=== PATIENT | male | born 1960 | race Caucasian/White ===

== ENCOUNTER → 2025-06-23 | Day surgery (SDC) | payer BC ==
[2025-06-16 09:04] LABS: BASOPHILS % 0.6 % (0.0-1.0); EOSINOPHILS % 8.9 % (0.0-6.0); LYMPHOCYTES % 27.3 % (18.0-39.1); MONOCYTES % 7.3 % (4.4-11.3); NEUTROPHILS % 55.8 % (38.7-80.0); RED CELL DISTRIBUTION WIDTH 13.2 % (11.7-14.4)
[~2025-06-23] MED LIST: AMLODIPINE BESY10 MG PO; ASPIRIN81 MG PO; AZITHROMYCIN500 MG PO; CEFDINIR300 MG PO; CRESTOR10 MG PO; DIOVAN160 MG PO; FENOFIBRATE145 MG PO; JARDIANCE25 MG PO; KAZANO; KERENDIA10 MG PO; LIDOCAINE HCL 2% LOCAL INJ 5 ML SDV VIAL INJ ONE; LISINOPRIL10 MG PO; MOUNJARO15 MG/0.5 SQ; PROPOFOL IV EMULSION 10 MG/ML 20 ML VIAL ONE
[2025-06-23] MEDS: LACTATED RINGER'S 1,000 ML ONE (08:19)
[2025-06-23 10:28] VITALS: TEMP 97
[2025-06-23 10:40] VITALS: BP 110/58; PULSE 68; RESP 15; O2SAT 98
== END | disposition home or self-care (01) ==
LOC: OR 07:06
PROVIDERS: ATTEND Internal Medicine Gastroenterology
DX: Z09 Encounter for follow-up examination after completed treatment for conditions other than malignant neoplasm (principal); D12.2 Benign neoplasm of ascending colon; D12.3 Benign neoplasm of transverse colon; K64.8 Other hemorrhoids; E11.9 Type 2 diabetes mellitus without complications; I10 Essential (primary) hypertension; E78.5 Hyperlipidemia, unspecified; Z01.810 Encounter for preprocedural cardiovascular examination; Z01.812 Encounter for preprocedural laboratory examination; Z79.82 Long term (current) use of aspirin; Z79.85 Long-term (current) use of injectable non-insulin antidiabetic drugs; Z79.899 Other long term (current) drug therapy; Z68.30 Body mass index [BMI] 30.0-30.9, adult; Z71.3 Dietary counseling and surveillance; Z87.891 Personal history of nicotine dependence
CPT/HCPCS: 36415; 45378; 45385; 82948; 85025; 88305; 93005; J2003